=== PATIENT | female | born 1965 | race African-American/Black ===

== ENCOUNTER 2019-06-22 09:38 | Emergency (ER) | payer OTHER, SELFPAY ==
[2019-06-22 10:00] VITALS: BP 157/105; PULSE 71; RESP 16; TEMP 36.8; O2SAT 99
--- NOTE | 2019-06-22 10:37 | ED.GENADULT ---
HPI - General Adult General Chief complaint: Ear Stated complaint: R/ear clogged/popping Time Seen by Provider: 06/22/19 10:37 Source: patient Mode of arrival: ambulatory Limitations: no limitations History of Present Illness HPI narrative: 53-year-old female patient presents to the [facility] with complaints of left ear pain and a feeling of her right ear being clogged. Patient states that the right ear has been clogged for about 2 weeks and noticed that the left ear has been increase in pain for last couple of days. Patient states she did have some cold and sinus symptoms that has recently cleared up. Denies any fevers, runny nose, stuffy nose, coughing, chest pain or shortness of breath. Related Data Home Medications Medication Instructions Recorded Confirmed Hair,Skin, And Nails 06/22/19 albuterol sulfate 06/22/19 diltiazem HCl PO 06/22/19 multivitamin 06/22/19 nebivolol [Bystolic] mg 06/22/19 Allergies Allergy/AdvReac Type Severity Reaction Status Date / Time aspirin Allergy Unknown Verified 05/05/18 23:02 Review of Systems Review of Systems: Narrative: CONSTITUTIONAL: Denies fever, chills, or sweats. EYES: Denies visual changes, redness, or discharge. ENT: Denies rhinorrhea, congestion, sore throat, positive left otalgia, positive right ear feeling clogged CARDIOVASCULAR: Denies chest pain, palpitations, or edema. RESPIRATORY: Denies cough or dyspnea. GASTROINTESTINAL: Denies abdominal pain, nausea, vomiting, or diarrhea. GENITOURINARY: Denies dysuria or hematuria. SKIN: Denies rash or itching. MUSCULOSKELETAL: Denies back pain, joint pain, or myalgia. NEUROLOGIC: Denies headache, numbness, or weakness. PSYCHIATRIC: Denies anxiety or depression. PMFSH Comments At the time of my signature I agree with nursing past medical history, surgical, social, and family history. There is no relevant family history pertinent to the presenting complaint. Exam Narrative: Exam Narrative: GENERAL: Well-appearing, well-nourished, and in no acute distress. HEAD: Normocephalic, atraumatic. EYES: PERRLA and EOMI. ENT: Nares clear, no rhinorrhea or epistaxis. Mucous membranes moist. Posterior pharynx with no erythema, tonsillectomy, exudates or lesions present. The left ear does appear to have some erythema and. The right ear unable to be assessed due to cerumen impaction. NECK: Supple. No lymphadenopathy CHEST: Clear to auscultation. No respiratory distress. HEART: Regular rate and rhythm. No murmur heard. Normal peripheral pulses. ABDOMEN: Soft, nontender, nondistended, normal active bowel sounds. EXTREMITIES: Normal range of motion. No edema. SKIN: Warm, dry, no rash. NEURO: No focal deficits. Alert and oriented x3. Course Vital Signs Vital signs: Vital Signs Temperature 36.8 C 06/22/19 10:00 Pulse Rate 71 06/22/19 10:00 Respiratory Rate 16 06/22/19 10:00 Blood Pressure 157/105 H 06/22/19 10:00 Pulse Oximetry 99 06/22/19 10:00 Temperature 36.8 C 06/22/19 10:00 Pulse Rate 71 06/22/19 10:00 Respiratory Rate 16 06/22/19 10:00 Blood Pressure 157/105 H 06/22/19 10:00 Pulse Oximetry 99 06/22/19 10:00 Vital signs reviewed. The patient has been informed that they may have pre-hypertension or Hypertension based on a BP reading in the department. I recommend that the patient call the primary care provider listed on their discharge instructions or a physician of their choice this week to arrange follow up for further evaluation of possible pre-hypertension or Hypertension Procedures Ear Wax Removal Right Ear: Ear Wax Removal Date: 06/22/19 Ear Wax Removal Time: 10:42 Cerumenolytic Used: 5-10% Sodium Bicarb solution Results: Re-examined: cerumen removed completely TM Examination: TM(s) intact, normal appearance Ear Canal Exam: atraumatic Patient Tolerated Procedure: well Complications: no problems Technique: ear canal irriga
== END 2019-06-22 10:53 | disposition home or self-care (01) ==
PROVIDERS: Emergency Provider Nurse Practitioner Family
DX: H61.21 Impacted cerumen, right ear (principal); H66.92 Otitis media, unspecified, left ear; I10 Essential (primary) hypertension; J45.909 Unspecified asthma, uncomplicated
CPT/HCPCS: 69210; 99213; G0463

== ENCOUNTER 2023-05-28 08:20 | Emergency (ER) | payer OTHER, SELFPAY ==
--- NOTE | ~2023-05-28 | XR_ITS ---
Left Knee Technique: AP, lateral, and sunrise views were obtained. Clinical History: Pain Findings: No fracture or dislocation is seen. Osseous alignment is anatomic. Mild medial joint line s purring noted. Soft tissues are unremarkable. No joint effusion is seen. Impression: Mild medial joint line spurring. Reviewed, dictated and finalized at [facility]. ON [place]ASTER Impression: Mild medial joint line spurring.
--- NOTE | 2023-05-28 08:22 | ED.UPPEXIN ---
HPI - Extremity Injury (Upper) General Stated Complaint: Left Knee Pain Time Seen by Provider: 05/28/23 08:22 Related Data Home Medications Medication Instructions Recorded Confirmed Hair,Skin, And Nails 06/22/19 albuterol sulfate 06/22/19 diltiazem HCl 360 mg PO 06/22/19 capsule,extended release 24 hr multivitamin 06/22/19 nebivolol 5 mg tablet (Bystolic) mg 06/22/19 Allergies Allergy/AdvReac Type Severity Reaction Status Date / Time aspirin Allergy Unknown Verified 05/05/18 23:02 Discharge Plan Discharge Prescriptions: No Action diltiazem HCl 360 mg capsule,extended release 24hr PO Bystolic 5 mg tablet Hair,Skin, And Nails multivitamin albuterol sulfate amoxicillin 500 mg capsule 1,000 mg PO Q8H 5 Days Qty: 30 0RF Follow-up/Referrals: Mendoza,DO Edmond [Primary Care Provider] -
--- NOTE | 2023-05-28 08:22 | ED.LOWEXIN ---
HPI - Extremity Injury (Lower) General Chief Complaint: Extremity Problem,Nontraumatic Stated Complaint: Left Knee Pain Time Seen by Provider: 05/28/23 08:22 Source: patient Mode of arrival: ambulatory Limitations: no limitations History of Present Illness HPI Narrative: Imelda is a 57-year-old female patient presenting to the clinic today with complaints of left knee pain x8 days. She reports symptoms started on May 20. Denies any known injury but states that her knee started hurting after she slept on a couch. Having pain to the entire knee joint. Pain is sharp in nature and comes and goes. Related Data Home Medications Medication Instructions Recorded Confirmed diltiazem HCl 360 mg 360 mg PO DAILY 06/22/19 05/28/23 capsule,extended release 24 hr losartan 50 mg tablet 50 mg PO DAILY 05/28/23 05/28/23 Allergies Allergy/AdvReac Type Severity Reaction Status Date / Time aspirin Allergy Unknown Other Verified 05/28/23 08:31 Review of Systems Review of Systems: Pertinent positives per HPI. Patient denies any fever, chills, rash, headache, visual changes, dizziness, cough, runny nose, sore throat, shortness of breath, chest pain, palpitations, nausea, vomiting, diarrhea, constipation, abdominal pain, or any urinary issues. PMFSH Comments At the time of my signature, I reviewed and agree with the nursing past medical, surgical, social, and family history. There is no relevant family history pertinent to the patient complaint. Exam Narrative: General: Well-developed, morbidly obese, in no apparent distress Head: Normocephalic, atraumatic. Cardio: Regular rate and rhythm, s1 and s2 normal, no murmur appreciated. Resp: Clear to auscultation bilaterally, no rhonchi, rales, wheezing or rubs. Musculoskeletal: No deformity, tender to palpation over the superior and inferior anterior knee joint, pain with flexion and extension of the left knee joint, some crepitus palpable with flexion and extension, grossly normal range of motion, muscle strength strong and equal, peripheral pulse strong, no edema, no cyanosis, normal gait and station Course Course Emergency Course: Portions of this record may have been created with voice recognition software. Level of Care: Express Care Visit Vital Signs Vital signs: Vital signs reviewed MDM - Extremity Injury (Lower) MDM Narrative Medical decision making narrative: At the time of visit patient is resting comfortably on the exam table. Patient appears to be nontoxic. Diagnostics: X-ray of left knee shows some mild medial knee spurring without joint effusion or fracture. Plan: I suspect patient has acute knee pain with a mild medial knee spurring. Will give her Dr. Lopez's-Ortho information to follow up. Will send in a Medrol Dosepak for pain and swelling. Supportive measures were discussed with the patient and they voiced understanding discharge instructions and agrees to treatment plan. Return precautions reviewed Differential Diagnosis Differential diagnosis: Likely acute internal derangement of knee and other (Knee sprain, tibia fracture, distal femur fracture, soft tissue swelling, gout, arthritis) Imaging Data Radiologist's impression: ITS Impressions Knee X-Ray 05/28/23 09:06 Impression: Mild medial joint line spurring. Discharge Plan Discharge Clinical Impression: Acute pain of left knee Patient Disposition: Home, Self-Care Condition: Stable Instructions: Antibiotic Form, Knee Pain (ED) Additional Instructions: X-ray of the left knee shows some mild medial spurring without effusion or fracture. Take Medrol Dosepak as prescribed Rest, ice, elevate, and wear mynor wrap as directed May wear a hinged knee brace for support when year up ambulating if needed Tylenol/motrin for pain as discussed. Gradually bear weight Follow up with your PCP if symptoms persist more than 1 week. Follow-up with ortho
[2023-05-28 08:38] VITALS: BP 160/102; PULSE 63; RESP 16; TEMP 36.9; O2SAT 100
== END 2023-05-28 09:25 | disposition home or self-care (01) ==
PROVIDERS: Emergency Provider Nurse Practitioner Family; PCP Student in an Organized Health Care Education/Training Program
DX: M25.562 Pain in left knee (principal); I10 Essential (primary) hypertension; J45.909 Unspecified asthma, uncomplicated
CPT/HCPCS: 73564; 99213; G0463

== ENCOUNTER 2023-07-02 10:04 | Emergency (ER) | payer OTHER, SELFPAY ==
[2023-07-02 10:20] VITALS: BP 158/97; PULSE 65; RESP 16; TEMP 37.2; O2SAT 99
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
== END 2023-07-02 10:57 | disposition home or self-care (01) ==
PROVIDERS: Emergency Provider Nurse Practitioner; PCP Student in an Organized Health Care Education/Training Program
DX: M25.561 Pain in right knee (principal); I10 Essential (primary) hypertension; J45.909 Unspecified asthma, uncomplicated
CPT/HCPCS: 99213; G0463

== ENCOUNTER 2025-02-09 03:44 | Emergency (ER) | payer OTHER, SELFPAY ==
[2025-02-09] VITALS (8 sets, daily range): BP systolic 145–181; BP diastolic 87–115; PULSE 57–71; RESP 13–21; TEMP 36.7; O2SAT 97–100
--- NOTE | ~2025-02-09 | CT_ITS ---
CT HEAD NON-CONTRAST Clinical History: Recent hemorrhagic stroke, headache, s/p craniotom Comparison: CT brain 05/24/2016 Technique: Unenhanced axial images skull base to vertex Coronal, sagittal reformats CT images acquired with automatic exposure control for dose reduction DLP: 681 mGy-cm Findings: Suboccipital craniectomy. Overlying ill-defined fluid. Right frontal reuben hole. Small tract right frontal encephalomalacia. Sulci, ventricles: Unremarkable. No intracerebral hemorrhage. No evidence acute territorial infarct. No mass effect, midline shift. Visualized paranasal sinuses: Clear. Mastoid air cells: Clear. IMPRESSION: 1. No acute intracranial findings. 2. Ill-defined fluid overlying suboccipital craniectomy. Postoperative seroma versus CSF leak. Reviewed, dictated and finalized at location [facility].
--- NOTE | ~2025-02-09 | CT_ITS ---
EXAMINATION: CT abdomen pelvis w con DATE: 02/09/2025 05:14 INDICATION: Abdominal pain. Nausea and vomiting. TECHNIQUE: Computed tomography (CT) of the abdomen and pelvis was performed with 100 mL Omnipaque 350 intravenous contrast. Automated exposure control and iterative reconstruction technique were employed. The dose-length product was 1597.55 mGy-cm. COMPARISON: None. FINDINGS: The visualized portions of lung bases demonstrate mild atelectasis. There are airspace opacities in left lower lobe. No pleural effusion. Cardiomegaly is noted. No pericardial effusion. The liver, gallbladder, spleen, pancreas, adrenal glands, and left kidney are normal. There is cortical thinning of right kidney. Stool distends the rectum. There is diverticulosis of the colon without evidence of diverticulitis. There is a large volume of stool in the colon. The appendix is normal. There are no pathologically enlarged lymph nodes. There is no free intraperitoneal fluid. There is a right inguinal hernia containing fat. There is a 6.7 cm lipoma in left lateral body wall. There is moderate thoracic spondylosis and mild lumbar spondylosis. IMPRESSION: 1. Large volume of stool in the colon with distention of the rectum. 2. Airspace opacities in left lung lower lobe, consistent with atelectasis versus pneumonia. Reviewed, dictated and finalized at location E. IMPRESSION: 1. Large volume of stool in the colon with distention of the rectum. 2. Airspace opacities in left lung lower lobe, consistent with atelectasis vers us pneumonia.
--- NOTE | 2025-02-09 04:10 | ED.NAVMDI ---
HPI - Nausea/Vomiting/Diarrhea General Chief complaint: Nausea/Vomiting/Diarrhea Stated complaint: I can't keep anything down Time Seen by Provider: 02/09/25 04:00 History of Present Illness HPI Narrative: 59-year-old female with recent hemorrhagic stroke history requiring ICU admission. Patient was hospitalized at [facility] ICU from the beginning of the month and discharged on the for subacute rehab. Patient was discharged from rehab to home yesterday. Patient was doing okay ambulating without any assistance and throughout the night was complaining of diffuse abdominal pain and nausea and vomiting. She is also complaining of a headache. No recent falls or injuries. No anticoagulation use. She did have a craniectomy and drain placed for her hemorrhagic stroke which were subsequently removed and she still has beverly in the back of her head. Patient denies any paresthesias or weakness. Still has some leftover brain fog and word-finding difficulties from the stroke but otherwise no deficits. Endorsing diffuse abdominal pain presently. No history of abdominal surgeries. Was otherwise in her normal state of health. Denies any fever chills or urinary complaints. No chest pain or shortness of breath. Related Data Home Medications ?Medication ?Instructions ?Recorded ?Confirmed ?Last Taken ?Type diltiazem HCl 360 mg 360 mg PO DAILY 06/22/19 07/02/23 Unknown History capsule,extended release 24 hr losartan 50 mg tablet 50 mg PO DAILY 05/28/23 07/02/23 Unknown History Allergies Allergy/AdvReac Type Severity Reaction Status Date / Time aspirin Allergy Unknown Other Verified 02/09/25 05:02 Review of Systems Review of Systems: As reviewed above in HPI Exam Narrative: GENERAL: [Well-appearing, well-nourished, and in no acute distress.] HEAD: [Normocephalic, atraumatic.] EYES: [PERRLA and EOMI.] ENT: Nares clear, no rhinorrhea or epistaxis. Mucous membranes moist. NECK: Supple. CHEST: [Clear to auscultation. No respiratory distress.] HEART: [Regular rate and rhythm]. No murmur heard. [Normal peripheral pulses.] ABDOMEN: Protuberant, tender to palpation diffusely, soft and no rigidity or guarding., no signs of peritonitis EXTREMITIES: Normal range of motion. [No edema.] SKIN: Warm, dry, no rash. NEURO: [No focal deficits]. Alert and oriented [x3.] PSYCH: [Normal mood and affect.] Course Vital Signs Vital signs: Vital Signs Temperature 36.7 C 02/09/25 04:23 Pulse Rate 57 L 02/09/25 04:23 Respiratory Rate 21 H 02/09/25 04:23 Blood Pressure 181/115 H 02/09/25 04:23 Pulse Oximetry 100 02/09/25 04:23 Oxygen Delivery Room Air 02/09/25 04:23 Temperature 36.7 C 02/09/25 04:23 Pulse Rate 69 02/09/25 06:01 Respiratory Rate 16 02/09/25 06:01 Blood Pressure 145/88 H 02/09/25 06:01 Pulse Oximetry 100 02/09/25 05:23 Oxygen Delivery Room Air 02/09/25 04:23 MDM - Nausea/Vomiting/Diarrhea MDM Narrative Medical decision making narrative: 59-year-old female with recent hemorrhagic stroke history requiring ICU admission. Patient was hospitalized at [facility] ICU from the beginning of the month and discharged on the for subacute rehab. Patient was discharged from rehab to home yesterday. Patient was doing okay ambulating without any assistance and throughout the night was complaining of diffuse abdominal pain and nausea and vomiting. She is also complaining of a headache. No recent falls or injuries. No anticoagulation use. She did have a craniectomy and drain placed for her hemorrhagic stroke which were subsequently removed and she still has beverly in the back of her head. Patient denies any paresthesias or weakness. Still has some leftover brain fog and word-finding difficulties from the stroke but otherwise no deficits. Endorsing diffuse abdominal pain presently. No history of abdominal surgeries. Was otherwise in her normal state of health. Denies any fever chills or urinary complaints. No chest pain or shortness of breath. Patient is hemodynamically stable, no tachycardia or significant blood pressure elevations. Mildly tachypneic but likely from pain. She does have a tender abdomen but soft and non rigid. He is complaining of a headache and nauseous with vomiting throughout the evening. Concern presently for infectious pathology, complications of her recent hemorrhagic stroke, intra-abdominal infection, gastroenteritis, ileus or obstruction less likely. Patient given Reglan, diphenhydramine, morphine as well as fluids and basic lab studies urinalysis and a CT scan of the abdomen and head were obtained. Patient CT scan shows no acute intracranial hemorrhage but does have occipital fluid collections concerning for CSF leak versus postoperative seroma. CT abdomen pending. I did have discussions with the [facility] transfer system to get patient back to [facility] for neurosurgical evaluation of her potential CSF leak or postoperative complication. Laboratory studies unremarkable patient did have some improvement with current regimen of treatments including Reglan diphenhydramine morphine and fluids. Hemodynamically stable. Discussed the case with Dr. Madden from neurosurgery at [facility] who recommended ER to ER transfer for evaluation at this time. Patient family updated on the plan. ER physician accepting is Dr. Graves. Ambulance services arranged for transfer to [facility] emergency department this time. Medical Records Attestation: I reviewed the patient's medical records. Lab Data Attestation: I reviewed the patient's lab results. 02/09/25 04:20 02/09/25 04:20 Labs: Lab Results 02/09/25 02/09/25 Range/Units 04:20 04:59 WBC 4.1 L (4.5-10.0) K/mm3 RBC 3.96 L (4.2-5.4) M/mm3 Hgb 11.6 L (12.0-15.0) g/dL Hct 35.6 L (37.0-47.0) % MCV 89.9 (80-100) fl MCH 29.3 (26-34) pg MCHC 32.6 (32-36) g/dl RDW 12.4 (11.5-14.5) % Plt Count 249 (150-375) k/mm3 MPV 9.3 (7.4-10.4) fl Immature Gran % (Auto) 0.2 (0-0.5) % Neut % (Auto) 51.4 (45.5-73.1) % Lymph % (Auto) 32.6 (18.3-44.2) % Henderson % (Auto) 11.2 H (2.6-8.5) % Eos % (Auto) 4.4 (0-4.4) % Baso % (Auto) 0.2 (0.2-1.2) % Lymph # (Auto) 1.34 (0.9-3.2) K/mm3 Henderson # (Auto) 0.5 (0.1-0.6) K/mm3 Eos # (Auto) 0.2 (0-0.3) K/mm3 Baso # (Auto) 0.0 (0.0-0.1) K/mm3 Abs Immat Gran (auto) 0.01 (0.00-0.031) K/mm3 Absolute Neuts (auto) 2.1 (1.3-6.7) K/mm3 Absolute Nucleated RBC 0.000 (0.0-0.012) K/mm3 Nucleated RBC % 0.0 (0.0-0.2) % Sodium 141 (137-145) mmol/L Potassium 3.9 (3.4-5.0) mmol/L Chloride 104 (98-107) mmol/L Carbon Dioxide 29 (22-30) mmol/L Anion Gap 8 (4-12) mmol/L BUN 11 (7-17) mg/dL Creatinine 1.04 H (0.7-1.0) mg/dL Estim Creat Clear Calc 67 ml/min Estimated GFR 54 L (59 - ) Glucose 110 (65-110) mg/dL Calcium 9.3 (8.4-10.2) mg/dL Total Bilirubin 0.7 (0.2-1.3) mg/dL AST 35 (14-36) U/L ALT 33 (6-35) U/L Alkaline Phosphatase 89 (38-126) U/L Total Protein 8.6 H (6.3-8.2) g/dL Albumin 4.1 (3.5-5.1) g/dL Lipase 78 (23-300) U/L Urine Color Yellow (Yellow) Urine Appearance Clear (Clear) Urine pH 8.5 (5.0-9.0) Ur Specific [place] 1.020 (1.001-1.035) Urine Protein Trace (Negative) mg/dL Urine Glucose (UA) Negative (Negative) mg/dL Urine Ketones Trace H (Negative) mg/dL Ur Blood (Man) Negative (Negative) Urine Nitrate Negative (Negative) Urine Bilirubin Negative (Negative) Urine Urobilinogen 1.0 (<2.0) mg/dL Leukocyte Esterase Rfl Trace H (Negative) SHANT/UL Urine RBC 0-2 (0-2) /hpf Urine WBC 0-5 (0-3) /hpf Ur Squamous Epith Cells Few (Few) /hpf Urine Bacteria None seen /hpf Urine Casts 3-5 Imaging Data Attestation: I personally reviewed and interpreted this imaging study as follows: My impression: Impressions Head CT 02/09/25 06:39 IMPRESSION: 1. No acute intracranial findings. 2. Ill-defined fluid overlying suboccipital craniectomy. Postoperative seroma versus CSF leak. Discharge Plan Discharge Clinical Impression: Post surgical complication, Headache, History of cerebellar hemorrhage, Nausea & vomiting, Abdominal pain Patient Disposition: Acute Care Hospital Condition: Stable Patient Language: Vietnamese Prescriptions: No Action diltiazem HCl 360 mg capsule,extended release 24hr 360 mg PO DAILY losartan 50 mg tablet 50 mg PO DAILY methylprednisolone [Medrol (Blue)] 4 mg tablets,dose pack See Rx Instructions .ROUTE .COMPLEX Qty: 21 0RF Rx Instructions: orally per package directions ibuprofen 800 mg tablet 800 mg PO TID PRN (Reason: pain) Qty: 20 0RF Follow-up/Referrals: Mendoza,DO Edmond [Primary Care Provider] Time of Disposition: 07:19
[2025-02-09 04:26] LABS: Hematocrit 35.6 % (37.0-47.0); Hemoglobin 11.6 g/dL (12.0-15.0); Immature Granulocyte Percent A 0.2 % (0-0.5); Lymphocytes Absolute Auto 1.34 K/mm3 (0.9-3.2); Mean Corpuscular HGB Conc 32.6 g/dl (32-36); Mean Corpuscular Hemoglobin 29.3 pg (26-34); Mean Corpuscular Volume 89.9 fl (80-100); Nucleated Red Blood Cells Absolute Auto 0.000 K/mm3 (0.0-0.012); Nucleated Red Blood Cells Perc 0.0 % (0.0-0.2); Platelet Count Result 249 k/mm3 (150-375); Red Blood Count 3.96 M/mm3 (4.2-5.4); White Blood Count 4.1 K/mm3 (4.5-10.0)
[2025-02-09 04:38] LABS: Alanine Aminotransferase 33 U/L (6-35); Albumin Level 4.1 g/dL (3.5-5.1); Alkaline Phosphatase 89 U/L (38-126); Anion Gap 8 mmol/L (4-12); Aspartate Amino Transferase 35 U/L (14-36); Bilirubin,Total 0.7 mg/dL (0.2-1.3); Blood Urea Nitrogen 11 mg/dL (7-17); Calcium 9.3 mg/dL (8.4-10.2); Carbon Dioxide 29 mmol/L (22-30); Chloride 104 mmol/L (98-107); Estimated CRCL calculation 67 ml/min; Estimated Glomerular Filt Rate 54; Glucose 110 mg/dL (65-110); Lipase 78 U/L (23-300); Potassium 3.9 mmol/L (3.4-5.0); Sodium 141 mmol/L (137-145); Total Protein 8.6 g/dL (6.3-8.2)
[2025-02-09] MEDS: MORPHINE SULFATE (*CRX) 4 MG/ML INJ IV PUSH (04:51)
[2025-02-09] MEDS: METOCLOPRAMIDE HCL INJ 10 MG/2 ML VIAL IV PUSH (04:51)
[2025-02-09] MEDS: SODIUM CHLORIDE 0.9% IV 1,000 ML 999 ML IV CONT (04:52)
[2025-02-09 05:09] LABS: Add Urine Microscopic? YES; Appearance Urine Clear (Clear); Glucose Urine UA Negative (Negative); Leukocyte Esterase Ur Trace LEU/UL (Negative); Nitrate Urine Negative (Negative); Specific Grav Ur 1.020 (1.001-1.035)
--- NOTE | 2025-02-09 08:28 | PC.NURSE ---
Called pts daughter to update her on pt leaving [facility] with EMS and on way to [facility] ER.
== END 2025-02-09 08:11 | disposition short-term general hospital (02) ==
PROVIDERS: Emergency Provider Student in an Organized Health Care Education/Training Program; PCP Student in an Organized Health Care Education/Training Program
DX: G97.82 Other postprocedural complications and disorders of nervous system (principal); R51.9 Headache, unspecified; R10.9 Unspecified abdominal pain; R11.2 Nausea with vomiting, unspecified; I69.318 Other symptoms and signs involving cognitive functions following cerebral infarction; I69.320 Aphasia following cerebral infarction; R91.8 Other nonspecific abnormal finding of lung field; R93.0 Abnormal findings on diagnostic imaging of skull and head, not elsewhere classified; Y83.8 Other surgical procedures as the cause of abnormal reaction of the patient, or of later complication, without mention of misadventure at the time of the procedure
CPT/HCPCS: 36415; 70450; 74177; 80053; 81001; 83690; 85025; 96361; 96374; 96375; 99285; J1200; J2270; J2765; J7030; Q9967